=== PATIENT | male | born 1955 | race African-American/Black ===

== ENCOUNTER 2017-02-12 03:02 | Emergency (ER) | payer MEDICARE ==
[~2017-02-12] VITALS: Ht 170.2 cm; Wt 78.7 kg
[~2017-02-12 03:02] MED LIST: AMLO10TA2 PO; FAMC500T2 PO; FURO-92 PO; GLYB5TAB3 PO; LISI-167 PO; METF10002 PO; POTA25TA PO; SIMV40TA3 PO; [UNRECOGNIZED DRUG - REMARK]
[2017-02-12 05:21] LABS: HEMOGLOBIN 12.6 g/dL (13.7-18.0)
[2017-02-12 05:30] VITALS: BP 166/92
[2017-02-12 05:34] LABS: BLOOD UREA NITROGEN 24 mg/dL (7-18)
== END 2017-02-12 06:29 | disposition home or self-care (01) ==
LOC: ED 06:23
DX: I10 Essential (primary) hypertension (principal); E78.5 Hyperlipidemia, unspecified; E78.00 Pure hypercholesterolemia, unspecified; E11.9 Type 2 diabetes mellitus without complications
CPT/HCPCS: 36415; 80048; 82040; 85025; 93005

== ENCOUNTER 2017-02-24 14:45 | Emergency (ER) | payer MEDICARE, OTHER ==
[~2017-02-24] VITALS: Ht 170.2 cm; Wt 79.2 kg
[2017-02-24] MEDS ORDERED: LISINOPRIL 20 MG TABLET ONE (15:26)
[2017-02-24] MEDS ORDERED: AMLODIPINE 5 MG TABLET PO ONE (15:30)
[2017-02-24] MEDS ORDERED: LISINOPRIL 10 MG TABLET PO ONE (15:30)
[2017-02-24 15:41] LABS: HEMOGLOBIN 13.5 g/dL (13.7-18.0)
[2017-02-24 15:51] LABS: BLOOD UREA NITROGEN 23 mg/dL (7-18)
[2017-02-24 16:14] VITALS: BP 173/103
[2017-02-24] MEDS ORDERED: HYDROmorphone 1 MG/ML, 1ML ONE (16:44)
[2017-02-24] MEDS ORDERED: ONDANSETRON 2MG/ML, 2ML ONE (16:44)
== END 2017-02-24 16:34 | disposition home or self-care (01) ==
LOC: ED 16:28
DX: I10 Essential (primary) hypertension (principal); E78.00 Pure hypercholesterolemia, unspecified; E11.9 Type 2 diabetes mellitus without complications
CPT/HCPCS: 36415; 80048; 82040; 85025; 93005; 99285

== ENCOUNTER 2018-06-26 16:27 | Emergency (ER) | payer MEDICARE, OTHER ==
[~2018-06-26] VITALS: Ht 170.2 cm; Wt 89.9 kg
[2018-06-26] MEDS ORDERED: BACITRACIN ZINC OINT 500U/GM, 0.9 GM ONE (17:26)
[2018-06-26 17:44] VITALS: BP 180/100
== END 2018-06-26 17:51 | disposition home or self-care (01) ==
LOC: ED 17:45
DX: S91.112A Laceration without foreign body of left great toe without damage to nail, initial encounter (principal); E78.00 Pure hypercholesterolemia, unspecified; I10 Essential (primary) hypertension; E11.65 Type 2 diabetes mellitus with hyperglycemia; W22.8XXA Striking against or struck by other objects, initial encounter; Y93.89 Activity, other specified; Y92.828 Other wilderness area as the place of occurrence of the external cause; Y99.0 Civilian activity done for income or pay
CPT/HCPCS: 99283

== ENCOUNTER 2019-02-03 14:26 | Emergency (ER) | payer MEDICARE ==
[~2019-02-03] VITALS: Ht 170.2 cm; Wt 90.3 kg
[~2019-02-03 14:26] MED LIST changes: -AMLO10TA2 PO; +AMLO10TA8 PO
[2019-02-03 16:09] LABS: BASOPHILS # (AUTO) 0.01 x10^3/uL (0-0.1); BASOPHILS % (AUTO) 0 % (0-1); EOSINOPHILS # (AUTO) 0.06 x10^3/uL (0-0.4); EOSINOPHILS % (AUTO) 1 % (1-7); LYMPHOCYTES # (AUTO) 1.21 x10^3/uL (1-3.4); LYMPHOCYTES % (AUTO) 17 % (22-44); MD NO; MEAN CORPUSCULAR HEMOGLOBIN 28.1 pg (27.5-34.5); MEAN CORPUSCULAR HGB CONC 33.9 g/dL (33.2-36.2); MEAN CORPUSCULAR VOLUME 82.9 fL (81-97); MEAN PLATELET VOLUME 8.1 fL (7.4-10.4); MONOCYTES % (AUTO) 3 % (2-9); NEUTROPHILS # (AUTO) 5.73 x10^3/uL (1.8-6.8); NEUTROPHILS % (AUTO) 80 % (42-75); PLATELET COUNT 325 x10^3/uL (130-400); RED BLOOD COUNT 4.96 x10^6/uL (4.38-5.82); RED CELL DISTRIBUTION WIDTH 13.2 % (9.4-14.8)
[2019-02-03 16:22] LABS: ALANINE AMINOTRANSFERASE 43 U/L (12-78); ALBUMIN 2.9 g/dL (3.4-5.0); ANION GAP 6 mmol/L (5-15); CALCIUM 9.6 mg/dL (8.5-10.1); CHLORIDE 104 mmol/L (98-107)
[2019-02-03 16:24] LABS: ALKALINE PHOSPHATASE 144 U/L (45-117); BILIRUBIN,TOTAL 0.4 mg/dL (0.2-1.0); TOTAL PROTEIN 8.6 g/dL (6.4-8.2)
[2019-02-03] MEDS ORDERED: MAALOX/HYOSCYAMINE/LIDOCAINE 45 ML BTL ONE (17:19)
[2019-02-03] MEDS ORDERED: ONDANSETRON ODT 4 MG ONE (17:19)
[2019-02-03] MEDS ORDERED: ONDANSETRON ODT 4 MG PO ONE (17:30)
[2019-02-03] MEDS ORDERED: MAALOX/HYOSCYAMINE/LIDOCAINE 45 ML BTL PO ONE (17:30)
[2019-02-03 18:05] LABS: MICROSCOPIC AUTO
[2019-02-03 18:07] LABS: CULTURE INDICATED? NO
--- NOTE | 2019-02-03 18:40 | NUR ---
PT GIVEN WATER AND TOLERATED. PAIN A LITTLE BETTER SINCE MEDICATED
[2019-02-03 18:42] VITALS: BP 172/97
--- NOTE | 2019-02-03 18:47 | NUR ---
AT BEDSIDE. MD TOLD PT TO TAKE HIS INSULIN RIGHT NOW, THE DOSE HE TAKES AT NIGHT. PT HAS INSULIN PEN AND ADMINISTRATED IT HIMSELF
== END 2019-02-03 19:31 | disposition home or self-care (01) ==
LOC: ED 19:25
DX: K52.89 Other specified noninfective gastroenteritis and colitis (principal); E11.65 Type 2 diabetes mellitus with hyperglycemia; R10.84 Generalized abdominal pain; E11.22 Type 2 diabetes mellitus with diabetic chronic kidney disease; I12.9 Hypertensive chronic kidney disease with stage 1 through stage 4 chronic kidney disease, or unspecified chronic kidney disease; N18.9 Chronic kidney disease, unspecified; E78.5 Hyperlipidemia, unspecified
CPT/HCPCS: 36415; 74176; 80053; 81001; 83690; 85025; 99284; Q0162